=== PATIENT | female | born 1980 | race Caucasian/White ===

== ENCOUNTER → 2017-02-28 | Outpatient (CLI) | payer OTHER | LOC: CIMAGING 14:01 | PROVIDERS: ATTEND Obstetrics & Gynecology | DX: N63 Unspecified lump in breast (principal) | CPT/HCPCS: 76641-PO ==

== ENCOUNTER → 2017-03-17 | Outpatient (CLI) | payer OTHER ==
[~2017-03-17] MED LIST: THROMBIN (BOVINE) 5,000 UNIT VIAL TP ONE
== END ==
LOC: FIMAGING 08:41
PROVIDERS: ATTEND Obstetrics & Gynecology
PROC: 0HBT3ZX Excision of Right Breast, Percutaneous Approach, Diagnostic (ICD-10-PCS; principal; 2017-03-17)
DX: D24.1 Benign neoplasm of right breast (principal); N60.21 Fibroadenosis of right breast; N60.11 Diffuse cystic mastopathy of right breast

== ENCOUNTER → 2019-01-18 | Outpatient (CLI) | payer OTHER | LOC: CIMAGING 14:34 | PROVIDERS: ATTEND Obstetrics & Gynecology | DX: Z12.31 Encounter for screening mammogram for malignant neoplasm of breast (principal) ==